=== PATIENT | male | born 1955 | race Caucasian/White ===

== ENCOUNTER 2017-04-03 07:24 | Day surgery (SDC) | payer BC ==
[2017-04-03] MEDS: NS 1,000 ML IV (07:45)
[2017-04-03] MEDS ORDERED: PROPOFOL 200 MG/20 ML VIAL As Ordered (08:42)
[2017-04-03] MEDS ORDERED: LIDOCAINE 1% MDV 20ML VIAL As Ordered (08:45)
== END 2017-04-03 09:25 | disposition home or self-care (01) ==
LOC: M OPP 07:24
DX: Z12.11 Encounter for screening for malignant neoplasm of colon (principal); Z80.0 Family history of malignant neoplasm of digestive organs; K64.0 First degree hemorrhoids; K57.30 Diverticulosis of large intestine without perforation or abscess without bleeding; R12 Heartburn; K21.0 Gastro-esophageal reflux disease with esophagitis; K22.8 Other specified diseases of esophagus; R00.8 Other abnormalities of heart beat; I10 Essential (primary) hypertension; E78.5 Hyperlipidemia, unspecified; I34.0 Nonrheumatic mitral (valve) insufficiency; J45.909 Unspecified asthma, uncomplicated; R06.83 Snoring; Z79.899 Other long term (current) drug therapy; Z88.0 Allergy status to penicillin
CPT/HCPCS: G0105